=== PATIENT | male | born 1945 | race American Indian/Alaskan Native ===

== ENCOUNTER 2017-05-04 11:07 | Outpatient (CLI) | payer MEDICARE ==
--- NOTE | 2017-05-04 14:02 | XRay Report ---
KUB. History: Abdominal pain. Findings: The bowel gas pattern is unremarkable. Moderate stool is seen within the colon. There is rotoscoliosis of the visualized distal thoracic spine and the lumbar spine. No additional bony abnormalities are seen. Impression: No acute findings.
== END 2017-05-04 11:08 | disposition home or self-care (01) ==
LOC: SPVIMAG 11:07
DX: R10.9 Unspecified abdominal pain (principal); M41.86 Other forms of scoliosis, lumbar region; M41.84 Other forms of scoliosis, thoracic region; I11.0 Hypertensive heart disease with heart failure; I50.9 Heart failure, unspecified; I48.91 Unspecified atrial fibrillation
CPT/HCPCS: 74000

== ENCOUNTER 2017-06-12 17:08 | Observation (INO) | payer MEDICARE ==
--- NOTE | 2017-06-12 23:30 | XRay Report ---
FINAL REPORT PROCEDURE: XR CHEST ROUTINE 2V TECHNIQUE: PA and lateral chest radiographs were obtained. CPT 86431 HISTORY: worsening cough COMPARISON: No prior studies are available for comparison. FINDINGS: Heart: The heart size is slightly pronounced. Mediastinum/Vessels: Normal. Lungs/Pleural space: Normal. Bony thorax: No acute osseous abnormality. Other: IMPRESSION: No evidence of an acute infiltrate or effusion. Mild cardiomegaly..
[2017-06-12 23:49] LABS: Hematocrit 48.3 % (35.5-45.6); Hemoglobin 16.2 gm/dl (11.8-15.2); Mean Corpuscular HGB Conc 34 % (32-34); Mean Corpuscular Hemoglobin 30 pg (28-32); Mean Corpuscular Volume 91 fl (84-94); Platelet Count 199 K/mm3 (140-440); Red Blood Count 5.33 M/mm3 (3.65-5.03); Red Cell Distribution Width 13.6 % (13.2-15.2); White Blood Count 5.1 K/mm3 (4.5-11.0)
[2017-06-13] MEDS ORDERED: PHENERGAN/CODEINE 6.25-10 MG/5ML PO ONE (00:03)
[2017-06-13 00:04] LABS: Anion Gap 20 mmol/L; BUN/Creatinine Ratio 26.42; Blood Urea Nitrogen 37 mg/dL (9-20); Calcium 9.6 mg/dL (8.4-10.2); Carbon Dioxide 32 mmol/L (22-30); Chloride 91.9 mmol/L (98-107); Glucose 113 mg/dL (75-100); Potassium 3.6 mmol/L (3.6-5.0); Sodium 140 mmol/L (137-145)
[2017-06-13] MEDS ORDERED: HALFPRIN EC PO ONE (00:14)
[2017-06-13 02:49] LABS: Cholesterol 165 mg/dL (50-199); HDL Cholesterol 65 mg/dL (40-59); LDL Cholesterol,Direct 86 mg/dL (50-130); Triglycerides 70 mg/dL (2-149)
--- NOTE | 2017-06-13 02:51 | Emergency Department Report ---
ED General Adult HPI - General Chief complaint: Upper Respiratory Infection Stated complaint: SEVERE COUGH/HEADACHE Source: patient Mode of arrival: Ambulatory Limitations: No Limitations - History of Present Illness Initial comments: 71 year old male presents to ED with worsening dry cough x 3 days. patient has history of CHF, a fib, htn. patient denies SOB, chest pain, leg swelling, fevers. patient is stable, neurologically intact and in no acute distress. patient has had labs ordered in triage prior to being seen by mid level. -: Gradual, days(s) (3) Severity scale (0 -10): 0 Quality: other (dry cough) Consistency: constant Improves with: none Worsens with: none Associated Symptoms: cough, headaches. denies: chest pain, diaphoresis, fever/ chills, shortness of breath, syncope, weakness - Related Data Home Medications Medication Instructions Recorded Confirmed Last Taken Diltiazem Cd [Cardizem CD] 240 mg PO QDAY 03/29/16 08/19/16 08/18/16 240mg Gabapentin [Neurontin] 300 mg PO BID 03/29/16 08/19/16 08/18/16 300mg HYDROcodone/APAP 5-325 [[place] 1 each PO Q6HR PRN 03/29/16 08/19/16 08/18/16 5-325 mg TAB] 1 Losartan [Cozaar] 25 mg PO DAILY 03/29/16 08/19/16 08/18/16 25mg Previous Rx's Medication Instructions Recorded Last Taken Type Apixaban [Eliquis] 5 mg PO BID #1 mo 02/21/16 08/17/16 Rx 5mg Potassium Chloride 10 meq PO BID #60 capsule.er 04/02/16 08/18/16 Rx 10meq Metolazone [Zaroxolyn] 2.5 mg PO QDAY #4 tablet 08/19/16 Unknown Rx Torsemide [Demadex] 40 mg PO DAILY #60 tablet 08/19/16 Unknown Rx Allergies Allergy/AdvReac Type Severity Reaction Status Date / Time No Known Allergies Allergy Verified 11/24/13 11:25 ED Review of Systems ROS: Stated complaint: SEVERE COUGH/HEADACHE Other details as noted in HPI Constitutional: denies: chills, fever, weakness Eyes: denies: eye pain, eye discharge, vision change ENT: denies: ear pain, throat pain Respiratory: cough. denies: shortness of breath, wheezing Cardiovascular: denies: chest pain, palpitations Endocrine: no symptoms reported Gastrointestinal: denies: abdominal pain, nausea, diarrhea Genitourinary: denies: urgency, dysuria Musculoskeletal: denies: back pain, joint swelling, arthralgia Skin: denies: rash, lesions Neurological: denies: headache, weakness, paresthesias, confusion Psychiatric: denies: anxiety, depression Hematological/Lymphatic: denies: easy bleeding, easy bruising ED Past Medical Hx - Past Medical History Hx Hypertension: Yes Hx Congestive Heart Failure: Yes Hx Arthritis: Yes Additional medical history: A-Fib. Possible Sleep Apnea - Surgical History Past Surgical History?: No - Social History Smoking Status: Never Smoker - Medications Home Medications: Home Medications Medication Instructions Recorded Confirmed Last Taken Type Apixaban [Eliquis] 5 mg PO BID #1 mo 02/21/16 08/19/16 08/17/16 Rx 5mg Diltiazem Cd [Cardizem CD] 240 mg PO QDAY 03/29/16 08/19/16 08/18/16 History 240mg Gabapentin [Neurontin] 300 mg PO BID 03/29/16 08/19/16 08/18/16 History 300mg HYDROcodone/APAP 5-325 [[place] 1 each PO Q6HR PRN 03/29/16 08/19/16 08/18/16 History 5-325 mg TAB] 1 Losartan [Cozaar] 25 mg PO DAILY 03/29/16 08/19/16 08/18/16 History 25mg Potassium Chloride 10 meq PO BID #60 capsule.er 04/02/16 08/19/16 08/18/16 Rx 10meq Metolazone [Zaroxolyn] 2.5 mg PO QDAY #4 tablet 08/19/16 Unknown Rx Torsemide [Demadex] 40 mg PO DAILY #60 tablet 08/19/16 Unknown Rx ED Physical Exam - General Limitations: No Limitations General appearance: alert, in no apparent distress - Head Head exam: Present: atraumatic, normocephalic - Eye Eye exam: Present: normal appearance, EOMI - ENT ENT exam: Present: normal exam, normal orophraynx, mucous membranes moist - Neck Neck exam: Present: normal inspection, full ROM. Absent: tenderness - Respiratory Respiratory exam: Present: normal lung sounds bilaterally. Absent: respiratory distress, wheezes, rales, rhonchi, chest wall tenderness - Cardiovascular Cardiovascular Exam: Present: regular rate, normal rhythm. Absent: systolic murmur, diastolic murmur, rubs, gallop - GI/Abdominal GI/Abdominal exam: Present: soft, normal bowel sounds. Absent: distended, tenderness, guarding, rebound, rigid - Rectal Rectal exam: Present: deferred - Extremities Exam Extremities exam: Present: normal inspection, full ROM. Absent: tenderness - Back Exam Back exam: Present: normal inspection, full ROM. Absent: tenderness - Neurological Exam Neurological exam: Present: alert, oriented X3, normal gait - Psychiatric Psychiatric exam: Present: normal affect, normal mood - Skin Skin exam: Present: warm, dry, intact, normal color. Absent: rash ED Course Vital Signs 06/12/17 06/13/17 06/13/17 17:11 00:18 00:31 Temperature 98.4 F Pulse Rate 84 68 65 Respiratory 16 14 15 Rate Blood Pressure 141/68 125/63 O2 Sat by Pulse 98 97 98 Oximetry 06/13/17 06/13/17 06/13/17 00:45 01:00 01:15 Temperature Pulse Rate 66 77 68 Respiratory 16 19 12 Rate Blood Pressure 125/63 116/76 116/76 O2 Sat by Pulse 98 99 98 Oximetry 06/13/17 06/13/17 06/13/17 01:31 01:45 02:01 Temperature Pulse Rate 80 79 75 Respiratory 13 21 18 Rate Blood Pressure 116/76 116/76 118/76 O2 Sat by Pulse 97 97 96 Oximetry 06/13/17 06/13/17 06/13/17 02:15 02:31 02:45 Temperature Pulse Rate 74 70 80 Respiratory 20 14 19 Rate Blood Pressure 118/76 118/76 118/76 O2 Sat by Pulse 97 96 94 Oximetry 06/13/17 06/13/17 06/13/17 03:00 03:15 03:25 Temperature Pulse Rate 71 75 Respiratory 17 16 18 Rate Blood Pressure 121/68 121/68 O2 Sat by Pulse 96 96 98 Oximetry 06/13/17 06/13/17 06/13/17 03:31 03:45 04:01 Temperature Pulse Rate 67 82 79 Respiratory 17 24 24 Rate Blood Pressure 121/68 121/68 104/59 O2 Sat by Pulse 99 97 94 Oximetry 06/13/17 04:15 Temperature Pulse Rate 76 Respiratory 18 Rate Blood Pressure 121/68 O2 Sat by Pulse 96 Oximetry ED Medical Decision Making - Lab Data Result diagrams: 06/12/17 23:20 06/12/17 23:20 Labs 06/12/17 06/12/17 06/12/17 23:20 23:20 23:20 WBC 5.1 RBC 5.33 H Hgb 16.2 H Hct 48.3 H MCV 91 MCH 30 MCHC 34 RDW 13.6 Plt Count 199 Seg Neutrophils % Knocker Off VBG pH 7.378 Sodium 140 Potassium 3.6 Chloride 91.9 L Carbon Dioxide 32 H Anion Gap 20 BUN 37 H Creatinine 1.4 Estimated GFR > 60 BUN/Creatinine Ratio 26.42 Glucose 113 H Calcium 9.6 Total Creatine Kinase Troponin T 0.035 H NT-Pro-B Natriuret Pep Triglycerides 70 Cholesterol 165 LDL Cholesterol Direct 86 HDL Cholesterol 65 H Cholesterol/HDL Ratio 2.53 06/13/17 06/13/17 02:19 02:19 WBC RBC Hgb Hct MCV MCH MCHC RDW Plt Count Seg Neutrophils % VBG pH Sodium Potassium Chloride Carbon Dioxide Anion Gap BUN Creatinine Estimated GFR BUN/Creatinine Ratio Glucose Calcium Total Creatine Kinase 195 H Troponin T NT-Pro-B Natriuret Pep 570.9 Triglycerides Cholesterol LDL Cholesterol Direct HDL Cholesterol Cholesterol/HDL Ratio - EKG Data EKG shows normal: sinus rhythm Rate: normal - EKG Data When compared to previous EKG there are: no significant change - Radiology Data Radiology results: report reviewed XR chest No evidence for acute infiltrates or effusion. Mild cardiomegaly. - Medical Decision Making 71 year old male (hx of HTN, A-fib, CHF) presents to ED with dry cough x3 days. patient has had lab work ordered prior to being seen by mid level and has elevated troponin. patient denies fever, syncope, chest pain, SOB, leg swelling , N/V, abd pain. patient will be admitted to telemetry for observation and repeat cardiac enzymes due to elevated troponin during ED visit. patient's last stress test was July 2016 and showed EF of 65%. patient had heart cath March 2016 for tricuspid regurg and right ventricular pressure overload which showed moderate pulmonary htn and mildly decreased cardiac output. Patient is stable, neurologically intact and in no acute distress. patient has been admitted to telemetry unit and I have spoken with Dr. kramer at 2am for admission. Critical care attestation.: If time is entered above; I have spent that time in minutes in the direct care of this critically ill patient, excluding procedure time. ED Disposition Clinical Impression: Elevated troponin level Disposition: OP ADMIT IP TO THIS HOSP Is pt being admited?: Yes Does the pt Need Aspirin: Yes (patient has recieved 81mg aspirin during ED visit.) Condition: Stable
[2017-06-13] MEDS ORDERED: DULCOLAX PR PRN (03:49)
[2017-06-13] MEDS ORDERED: MILK OF MAGNESIA PO PRN (03:49)
[2017-06-13] MEDS ORDERED: NORCO 5/325 PO PRN (03:49)
[2017-06-13] MEDS ORDERED: TYLENOL PO PRN (03:49)
[2017-06-13] MEDS ORDERED: ZOFRAN IV PRN (03:49)
[2017-06-13] MEDS ORDERED: PROVENTIL IH PRN (03:49)
[2017-06-13] MEDS ORDERED: HYDROMET PO ONE (03:56)
[2017-06-13] MEDS ORDERED: TESSALON PERLES PO ONE (03:57)
[2017-06-13] MEDS ORDERED: D5/0.45NS 1,000 ML IV SCH (04:00)
--- NOTE | 2017-06-13 04:02 | History and Physical Report ---
History of Present Illness Date of examination: 06/13/17 Date of admission: 06/13/2017 Chief complaint: Cough dry cough History of present illness: Patient is a 71-year-old male with a history of non valvular atrial fibrillation , history of diastolic heart failure, hypertension, osteoarthritis. Patient presents this admission with a nonproductive cough lasting for 2-3 days associated with headache and postnasal drip symptoms stuffy runny nose. 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 Patient denies any shortness of breath denies chest pain. Denies fever rules denies nausea or vomiting. Patient recently as one year ago had extensive cardiac workup which showed ejection fraction of 65% atrial fibrillation. At that time had normal coronaries. Patient this admission has atrial fibrillation with normal ventricular response. Heart rate 75. Patient was noted to have elevated troponin of only 35. Will refer patient to follow elevated troponin. Past History Past Medical History: atrial fib, heart failure, hypertension. denies: arrhythmia, anemia, arthritis, CAD, cancer, COPD, diabetes, dialysis, DVT, ESRD , GERD, hepatitis, HIV/AIDS, hyperthyroidism, hyperlipidemia, hypothyroidism, liver disease, PVD, pulmonary embolism, renal failure, seizures Past Surgical History: No surgical history Social history: lives with family. denies: smoking, alcohol abuse, prescription drug abuse Family history: hypertension Medications and Allergies Allergies Allergy/AdvReac Type Severity Reaction Status Date / Time No Known Allergies Allergy Verified 11/24/13 11:25 Home Medications Medication Instructions Recorded Confirmed Last Taken Type Apixaban [Eliquis] 5 mg PO BID #1 mo 02/21/16 08/19/16 08/17/16 Rx 5mg Diltiazem Cd [Cardizem CD] 240 mg PO QDAY 03/29/16 08/19/16 08/18/16 History 240mg Gabapentin [Neurontin] 300 mg PO BID 03/29/16 08/19/16 08/18/16 History 300mg HYDROcodone/APAP 5-325 [[place] 1 each PO Q6HR PRN 03/29/16 08/19/16 08/18/16 History 5-325 mg TAB] 1 Losartan [Cozaar] 25 mg PO DAILY 03/29/16 08/19/16 08/18/16 History 25mg Potassium Chloride 10 meq PO BID #60 capsule.er 04/02/16 08/19/1616 Rx 10meq Metolazone [Zaroxolyn] 2.5 mg PO QDAY #4 tablet 08/19/16 Unknown Rx Torsemide [Demadex] 40 mg PO DAILY #60 tablet 08/19/16 Unknown Rx Active Meds: Active Medications Acetaminophen (Tylenol) 650 mg PO Q4H PRN PRN Reason: Pain MILD(1-3)/Fever >100.5/FREEDMNA Acetaminophen/Hydrocodone Bitart ([place] 5/325) 2 each PO Q6H PRN PRN Reason: Pain, Moderate (4-6) Albuterol (Proventil) 2.5 mg IH Q3HRT PRN PRN Reason: Shortness Of Breath Apixaban (Eliquis) 5 mg PO BID SUGAR PRN Reason: Protocol Bisacodyl (Dulcolax) 10 mg SD QDAY PRN PRN Reason: Constipation unrelieved by [facility] Diltiazem HCl (Cardizem Cd) 240 mg PO QDAY [facility] Enoxaparin Sodium (Lovenox) 40 mg SUB-Q QDAY [facility] Gabapentin (Neurontin) 300 mg PO BID [facility] Dextrose/Sodium Chloride (D5/0.45ns) 1,000 mls @ 42 mls/hr IV DIRECT SUGAR Stop: 06/14/17 03:49 Losartan Potassium (Cozaar) 25 mg PO DAILY [facility] Magnesium Hydroxide (Milk Of Magnesia) 30 ml PO Q4H PRN PRN Reason: Constipation Metolazone (Zaroxolyn) 2.5 mg PO QDAY [facility] Miscellaneous Medication (Potassium Chloride [Potassium Chloride]) 10 meq PO BID [facility] Miscellaneous Medication (Torsemide [Demadex]) 40 mg PO DAILY [facility] Ondansetron HCl (Zofran) 4 mg IV Q8H PRN PRN Reason: N/V unrelieved by Reglan Review of Systems Constitutional: chronic pain, no weight loss, no weight gain, no fever, no chills, no sweats, no night sweats, no anorexia, no fatigue, no weakness, no malaise, no lethargy, no chronic headaches, no poor appetite, no daytime sleepiness Ears, nose, mouth and throat: decreased hearing, nasal congestion, nasal discharge, sinus pressure, sore throat, post-nasal drip, no ear pain, no ear discharge, no tinnitis, no nose pain, no sinus pain, no epistaxis, no bleeding gums, no dental pain, no mouth pain, no dysphagia, no hoarseness, no swelling in mouth, no swelling in throat, no odynophagia, no voice changes, no headache, no vertigo, no pain front of neck, no neck fullness/pressure, no neck lump Cardiovascular: no chest pain, no orthopnea, no palpitations, no rapid/ irregular heart beat, no syncope, no dyspnea on exertion, no paroxysmal nocturnal dyspnea, no claudication, no phlebitis, no high blood pressure, no decreased exercise tolerance, no other Respiratory: cough, snoring, no cough with sputum, no excessive sputum, no hemoptysis, no shortness of breath, no dyspnea on exertion, no congestion, no wheezing, no pleurisy, no pain, no pain on inspiration, no sleep apnea, no respiratory infections, no home oxygen Gastrointestinal: no abdominal pain, no nausea, no vomiting, no melena, no hematochezia, no loss of appetite, no heartburn, no excessive gas, no jaundice, no early satiety, no lactose intolerance Genitourinary Male: no hematuria, no flank pain, no urinary frequency, no urinary hesitancy, no nocturia, no incontinence, no genital sores, no impotence , no decreased libido, no testicular pain, no testicular lump, no difficulties fathering child, no polyuria Rectal: no incontinence, no bleeding Musculoskeletal: no shooting arm pain, no arm numbness/tingling, no low back pain, no shooting leg pain, no leg numbness/tingling, no redness of joints, no morning stiffness, no muscle cramps, no myalgias, no loss of height Integumentary: no wounds, no jaundice, no depigmentation, no color changes, no hirsutism, no foot/leg ulcers, no other Neurological: headaches, no transient paralysis, no paralysis, no parathesias, no syncope, no ataxia, no lack of coordination, no migraines, no aphasia, no confusion, no memory loss, no changes in smell/taste, no sensory deficit, no double vision, no burning pain, no paralysis Psychiatric: no anxiety, no change in sleep habits, no sleep disturbances, no hypersomnia, no change in appetite, no suicidal ideation, no disorientation, no hallucinations, no paranoia, no hopelessness, no difficulties concentrating, no confusion, no irritability, no sadness/tearfullness, no other Endocrine: no cold intolerance, no heat intolerance, no excessive thirst, no polydipsia, no weight change, no increase in ring/shoe/hat size, no recent glucocorticoid use Hematologic/Lymphatic: no lymphadenopathy Allergic/Immunologic: no urticaria, no allergic rhinitis, no persistent infections, no anaphylaxis, no gluten intolerance, no seasonal allergies Exam - Constitutional Vitals: Temp Pulse Resp BP Pulse Ox 98.4 F 75 18 121/68 98 06/12/17 17:11 06/13/17 03:15 06/13/17 03:25 06/13/17 03:15 06/13/17 03:25 General appearance: Present: no acute distress, well-nourished - EENT Eyes: Present: PERRL, EOM intact. Absent: irregular pupil, scleral icterus, conjunctival injection, exopthalmos, miosis, mydriasis ENT: hearing intact, clear oral mucosa, dentition normal, no hearing decreased, no oropharyngeal erythema, no poor dentition, no thrush, no ulcerations, no edentulous - Neck Neck: Present: supple, normal ROM. Absent: rigidity, enlarged thyroid, masses or JVD, cervical LAD, carotid bruits - Respiratory Respiratory effort: normal Respiratory: bilateral: CTA - Cardiovascular Rhythm: regularly irregular Heart Sounds: Present: S1 & S2. Absent: rub, click - Extremities Extremities: pulses symmetrical, No edema Peripheral Pulses: within normal limits - Abdominal General gastrointestinal: Present: soft, non-tender, non-distended, normal bowel sounds - Integumentary Integumentary: Present: clear, warm, dry - Musculoskeletal Musculoskeletal: strength equal bilaterally, generalized weakness - Psychiatric Psychiatric: appropriate mood/affect, intact judgment & insight - Neurologic Neurologic: CNII-XII intact, moves all extremities Results - Labs CBC & Chem 7: 06/12/17 23:20 06/12/17 23:20 Labs: Laboratory Last Values WBC 5.1 K/mm3 (4.5-11.0) 06/12/17 23:20 RBC 5.33 M/mm3 (3.65-5.03) H 06/12/17 23:20 Hgb 16.2 gm/dl (11.8-15.2) H 06/12/17 23:20 Hct 48.3 % (35.5-45.6) H 06/12/17 23:20 MCV 91 fl (84-94) 06/12/17 23:20 MCH 30 pg (28-32) 06/12/17 23:20 MCHC 34 % (32-34) 06/12/17 23:20 RDW 13.6 % (13.2-15.2) 06/12/17 23:20 Plt Count 199 K/mm3 (140-440) 06/12/17 23:20 Seg Neutrophils % Rapier Insertion Loom Fixer 06/12/17 23:20 VBG pH 7.378 (7.320-7.420) 06/12/17 23:20 Sodium 140 mmol/L (137-145) 06/12/17 23:20 Potassium 3.6 mmol/L (3.6-5.0) 06/12/17 23:20 Chloride 91.9 mmol/L (98-107) L 06/12/17 23:20 Carbon Dioxide 32 mmol/L (22-30) H 06/12/17 23:20 Anion Gap 20 mmol/L 06/12/17 23:20 BUN 37 mg/dL (9-20) H 06/12/17 23:20 Creatinine 1.4 mg/dL (0.8-1.5) 06/12/17 23:20 Estimated GFR > 60 ml/min 06/12/17 23:20 BUN/Creatinine Ratio 26.42 % 06/12/17 23:20 Glucose 113 mg/dL (75-100) H 06/12/17 23:20 Calcium 9.6 mg/dL (8.4-10.2) 06/12/17 23:20 Total Creatine Kinase 195 units/L (55-170) H 06/13/17 02:19 Troponin T 0.035 ng/mL (0.00-0.029) H 06/12/17 23:20 NT-Pro-B Natriuret Pep 570.9 pg/mL (0-900) 06/13/17 02:19 Triglycerides 70 mg/dL (2-149) 06/12/17 23:20 Cholesterol 165 mg/dL (50-199) 06/12/17 23:20 LDL Cholesterol Direct 86 mg/dL (50-130) 06/12/17 23:20 HDL Cholesterol 65 mg/dL (40-59) H 06/12/17 23:20 Cholesterol/HDL Ratio 2.53 % 06/12/17 23:20 - Imaging and Cardiology EKG: image reviewed Chest x-ray: image reviewed Assessment and Plan Assessment and plan: Pt is on elaquis Advance Directives: Yes VTE prophylaxis?: Chemical Plan of care discussed with patient/family: Yes - Patient Problems (1) Cough Current Visit: Yes Status: Acute Plan to address problem: secondary to post nasal drip Will treat with tessalon pearls and hydro met Pt does not need to be in hospital for this and if f/u enzymes come back equal or lower than previous will discharge Add amoxicilin (2) Elevated troponin level Current Visit: Yes Status: Acute Plan to address problem: Pt withonly a mild elevated troponin with dehydration and recent extensive negative cardiac work up. Very low risk of significant CAD. F/U tropinin if lower than or equal to previous will d/c. cont to treat a.fib with elaquis (3) Post-nasal drip Current Visit: Yes Status: Acute Plan to address problem: see tratment of cough (4) Atrial fibrillation Current Visit: Yes Status: Acute Qualifiers: Atrial fibrillation type: A Plan to address problem: chronic at present asymptomatic cont elaquis rate controlled
[2017-06-13] MEDS ORDERED: ZITHROMAX PO ONE (04:13)
[2017-06-13 04:15] LABS: INR 1.32 (0.87-1.13)
[2017-06-13 04:16] LABS: Partial Thromboplastin Time 36.4 Sec. (24.2-36.6)
[2017-06-13 05:07] LABS: Basophils % (Manual) 0 % (0.0-1.8); Blastocytes % (Manual) 0 %
[2017-06-13 05:09] LABS: Anisocytosis Few; Burr Cells Few; Diff Status Complete
[2017-06-13 06:08] VITALS: BP 102/74
[2017-06-13] MEDS ORDERED: COZAAR PO SCH ×2 (10:00)
[2017-06-13] MEDS ORDERED: NON-FORMULARY (Torsemide [Demadex] 40 MG) PO SCH (10:00)
[2017-06-13] MEDS ORDERED: CARDIZEM CD PO SCH ×2 (10:00)
[2017-06-13] MEDS ORDERED: NON-FORMULARY (Potassium Chloride [Potassium Chloride] 10 MEQ) PO SCH (10:00)
[2017-06-13] MEDS ORDERED: K-DUR PO SCH (10:00)
[2017-06-13] MEDS ORDERED: ZAROXOLYN PO SCH (10:00)
[2017-06-13] MEDS ORDERED: LOVENOX SUB-Q SCH (10:00)
[2017-06-13] MEDS ORDERED: DEMADEX PO SCH (10:00)
[2017-06-13] MEDS ORDERED: NEURONTIN PO SCH (10:00)
[2017-06-13] MEDS ORDERED: ELIQUIS PO SCH (10:00)
--- NOTE | 2017-06-13 10:39 | Discharge Summary ---
Providers - Providers Date of Admission: 06/13/17 03:49 Attending physician: ERICA GUERRA MD Primary care physician: OLIVER HERRERA Hospitalization Reason for admission: cough, post nasal drip Condition: Stable Hospital course: Patient is a 71-year-old male with a history of non valvular atrial fibrillation , history of diastolic heart failure, hypertension, osteoarthritis. Patient presents this admission with a nonproductive cough lasting for 2-3 days associated with headache and postnasal drip symptoms stuffy runny nose. 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 Patient denies any shortness of breath denies chest pain. Denies fever rules denies nausea or vomiting. Patient recently as one year ago had extensive cardiac workup which showed ejection fraction of 65% atrial fibrillation. At that time had normal coronaries. Patient this admission has atrial fibrillation with normal ventricular response. Heart rate 75. Patient was noted to have elevated troponin of only 35. Will refer patient to follow elevated troponin. patient was admitted and symptomatically treated for cough, URTI. Patient showed marked improvement by the time i saw him. Patient's repeated troponin level come back to normal level. Patient asked to go home. patient was hemodynamically stable and was discharged home with appropriate discharge medications. Disposition: DC-01 TO HOME OR SELFCARE Time spent for discharge: 31 minutes - Discharge Diagnoses (1) Atrial fibrillation Status: Acute Qualifiers: Atrial fibrillation type: A (2) Cough Status: Acute (3) Elevated troponin level Status: Acute (4) Post-nasal drip Status: Acute Core Measure Documentation - Palliative Care Palliative Care/ Comfort Measures: Not Applicable - Core Measures Any of the following diagnoses?: none Exam - Constitutional Vitals: Temp Pulse Resp BP Pulse Ox 98.4 F 75 20 102/74 100 06/13/17 06:06 06/13/17 08:28 06/13/17 06:06 06/13/17 06:06 06/13/17 06:06 General appearance: Present: no acute distress - EENT Eyes: Present: EOM intact ENT: clear oral mucosa - Neck Neck: Present: supple, normal ROM - Respiratory Respiratory effort: normal - Cardiovascular Rhythm: regular Heart Sounds: Present: S1 & S2 - Extremities Extremities: no ischemia, No edema, Full ROM - Abdominal General gastrointestinal: Present: soft, non-tender, non-distended - Integumentary Integumentary: Present: clear, warm, dry - Musculoskeletal Musculoskeletal: strength equal bilaterally - Psychiatric Psychiatric: appropriate mood/affect - Neurologic Neurologic: CNII-XII intact, moves all extremities Plan Activity: no restrictions Diet: low cholesterol, low salt Follow up with: OLIVER HERRERA MD, PHD [Primary Care Provider] - 3-5 Days Forms: Discharge Signature Page Prescriptions: Amoxicillin 500 mg PO TID #21 capsule guaiFENesin DM [Robitussin Dm] 10 ml PO Q6HR #1 bottle HYDROcodone/APAP 5-325 [[place] 5-325 mg TAB] 1 each PO Q6HR PRN #10 tablet PRN Reason: Pain
[2017-06-13] MEDS ORDERED: Fluarix Quad 2017-2018(36 MOS+ IM ONE (12:00)
== END 2017-06-13 16:41 | disposition home or self-care (01) ==
LOC: EDBD 17:08 → ED 17:08 → 4A 06-13 03:49 → INTOOBSV 06-13 03:49
PROVIDERS: ADMIT Internal Medicine; ATTEND Internal Medicine
DX: R09.82 Postnasal drip (principal); R05 Cough; I48.91 Unspecified atrial fibrillation; R79.89 Other specified abnormal findings of blood chemistry; I11.0 Hypertensive heart disease with heart failure; I50.32 Chronic diastolic (congestive) heart failure; M19.90 Unspecified osteoarthritis, unspecified site; Z82.49 Family history of ischemic heart disease and other diseases of the circulatory system; Z23 Encounter for immunization
CPT/HCPCS: 36415; 71020; 80048; 80061; 82550; 82805; 83880; 84484; 85007; 85025; 85610; 85730; 87040; 90471; 90686; 93005; 93010; 96360; 96361; 99285; G0008; G0378

== ENCOUNTER 2017-09-15 07:43 | Day surgery (SDC) | payer MEDICARE ==
[2017-09-15] MEDS ORDERED: ECOTRIN PO ONE (08:06)
[2017-09-15 08:23] LABS: Hematocrit 46.2 % (35.5-45.6); Hemoglobin 15.8 gm/dl (11.8-15.2); Mean Corpuscular HGB Conc 34 % (32-34); Mean Corpuscular Hemoglobin 31 pg (28-32); Mean Corpuscular Volume 90 fl (84-94); Platelet Count 204 K/mm3 (140-440); Red Blood Count 5.12 M/mm3 (3.65-5.03); Red Cell Distribution Width 14.3 % (13.2-15.2)
[2017-09-15 08:34] LABS: INR 1.31 (0.87-1.13)
[2017-09-15 08:35] LABS: Calcium 9.1 mg/dL (8.4-10.2)
[2017-09-15] MEDS ORDERED: K-DUR PO ONE ×2 (08:51→08:54)
[2017-09-15] MEDS ORDERED: NACL 0.9% 500 ML 500 ML IV SCH (09:00)
[2017-09-15 09:03] LABS: Anisocytosis Few; Band Neutrophils # (Manual) 0.1 K/mm3; Basophils % (Manual) 0 % (0.0-1.8); Burr Cells Rare; Giant Platelets Few; Large Platelets Few; Total Cells Counted 100
[2017-09-15] MEDS ORDERED: HEPARIN/NS 5000 UNIT/500ML(CATH LAB) 1,000 ML IR ONE (09:26)
[2017-09-15] MEDS ORDERED: VERSED ONE (09:26)
[2017-09-15] MEDS ORDERED: SUBLIMAZE ONE (09:26)
[2017-09-15] MEDS: XYLOCAINE 2% INFILTRATI ONE ×2 (09:45→09:59)
--- NOTE | 2017-09-15 10:31 | Short Stay Summary ---
Short Stay Documentation Date of service: 09/15/17 - History H&P: obtained from office - Allergies and Medications Current Medications: Allergies codeine Adverse Reaction (Mild, Verified 09/15/17 08:22) Unknown pt has intolerance to medication acetaminophen [From Tylenol] Adverse Reaction (Verified 09/15/17 08:23) Unknown pt has intolerance to medication Home Medications Medication Instructions Recorded Confirmed Last Taken Type Apixaban [Eliquis] 5 mg PO BID #1 mo 02/21/16 09/15/17 09/14/17 Rx Diltiazem Cd [Cardizem CD] 240 mg PO QDAY 03/29/16 09/15/17 09/14/17 History Potassium Chloride 10 meq PO BID #60 capsule.er 04/02/16 09/15/17 09/14/17 Rx Aspirin [Aspirin TAB] 325 mg PO QDAY 09/15/17 09/15/17 09/14/17 History Loratadine [Claritin] 10 mg PO PRN PRN 09/15/17 09/15/17 09/14/17 History Metolazone [Zaroxolyn] 5 mg PO 1XW 09/15/17 09/15/17 09/13/17 History Torsemide [Demadex] 20 mg PO DAILY 09/15/17 09/15/17 09/14/17 History traMADol [Ultram] 50 mg PO Q6HR PRN 09/15/17 09/15/17 09/14/17 History Active Medications Sodium Chloride (Nacl 0.9% 500 Ml) 500 mls @ 50 mls/hr IV DIRECT SUGAR Stop: 09/15/17 18:59 Last Admin: 09/15/17 08:25 Dose: 50 mls/hr - Physical exam General appearance: no acute distress Integumentary: no rash HEENT: Atraumatic Lungs: Clear to auscultation Breasts: deferred Heart: Other Gastrointestinal: normal Male Genitourinary: deferred Female Genitourinary: deferred Rectal Exam: deferred Extremities: no ischemia Neurological: Normal gait - Brief post op/procedure progress note Date of procedure: 09/15/17 Pre-op diagnosis: PH, SOB Post-op diagnosis: same Procedure: RHC Anesthesia: MAC Findings: See report Surgeon: ROBERTO GONZALEZ Estimated blood loss: none Pathology: none Condition: stable - Hospital course Hospital course: Uneventful - Disposition Condition at discharge: Good Disposition: DC-01 TO HOME OR SELFCARE Short Stay Discharge Plan Activity: advance as tolerated, no driving until cleared by PCP (for 2 days) Weight Bearing Status: Non-Weight Bearing (for 2 days) Diet: low fat, low cholesterol, low salt Follow up with: OLIVER HERRERA MD, PHD [Primary Care Provider] - 7 Days
--- NOTE | 2017-09-15 12:18 | Cardiac Catherization Report ---
INDICATION: Pulmonary hypertension, shortness of breath. PROCEDURES PERFORMED: Right heart catheterization with hemodynamic measurement and oxygen saturation run. DESCRIPTION OF PROCEDURE: After obtaining written consent, the patient was draped using sterile technique. A 2% lidocaine was injected into the right groin. Using a micropuncture technique, a 6-Ethiopian vascular sheath was inserted into the right femoral vein. A 6-[place]ian [place]Josias catheter was used to perform right-sided hemodynamics and oxygen saturation run. No complications occurred during the procedure. Hemostasis was achieved at the end of the procedure using manual pressure. SPECIMEN REMOVED: None. ESTIMATED BLOOD LOSS: Minimal. FINDINGS: 1. The mean pulmonary capillary wedge pressure was 18 mmHg. 2. The mean pulmonary artery pressure was 33 mmHg with a systolic pressure of 51 mmHg, and end-diastolic pressure of 20 mmHg. 3. The right ventricular systolic pressure is 51 mmHg with right ventricular end-diastolic pressure of 12 mmHg. 4. The mean right arterial pressure is 16 mmHg. 5. The Burke cardiac output is 2.55 L per minute with a cardiac index of 1.47 L per minute per m sq. 6. The transpulmonary gradient is 15 mmHg with a pulmonary vascular resistance of 5.9 Archibald units. 7. Compared to the study done on 08/19/2016 there is significant improvement in the filling pressures; however, there is still evidence of pulmonary arterial hypertension and depressed cardiac output. IMPRESSION: 1. Evidence of [id number] pulmonary arterial hypertension with a depressed cardiac output, cardiac index measured at 1.47 liters per minute. 2. Elevated pulmonary vascular resistance of 5.9 Archibald units with a transpulmonary gradient of 15 mmHg and the pulmonary capillary wedge pressure of 18 mmHg. 3. Significant improvement in the filling pressures compared to 08/19/2016. RECOMMENDATIONS: The patient will be recommended for the initiation of pulmonary vasodilator therapy. JOB# [id number] JABIER/JASWINDER
[2017-09-15 14:37] VITALS: BP 110/70
== END 2017-09-15 14:20 | disposition home or self-care (01) ==
LOC: CATHLABREC 07:43
PROVIDERS: ATTEND Internal Medicine
PROC: 4A023N6 Measurement of Cardiac Sampling and Pressure, Right Heart, Percutaneous Approach (ICD-10-PCS; principal; 2017-09-15)
PROC: 4A023N6 Measurement of Cardiac Sampling and Pressure, Right Heart, Percutaneous Approach (ICD-10-PCS; 2017-09-15)
PROC: 4A023N6 Measurement of Cardiac Sampling and Pressure, Right Heart, Percutaneous Approach (ICD-10-PCS; 2017-09-15)
DX: I27.20 Pulmonary hypertension, unspecified (principal); I34.0 Nonrheumatic mitral (valve) insufficiency; I48.1 Persistent atrial fibrillation; I36.1 Nonrheumatic tricuspid (valve) insufficiency; G47.33 Obstructive sleep apnea (adult) (pediatric); Z79.01 Long term (current) use of anticoagulants; Z79.82 Long term (current) use of aspirin; Z79.899 Other long term (current) drug therapy; Z88.5 Allergy status to narcotic agent
CPT/HCPCS: 36415; 80048; 85007; 85025; 85610; 85730; 93005; 93010; 93451; 99152; C1769; C1894; J1644; J2250; J7040; J3010

== ENCOUNTER 2019-01-06 10:34 | Emergency (ER) | payer MEDICARE ==
[2019-01-06] MEDS ORDERED: NACL 0.9% 1000 ML 1,000 ML IV ONE (10:41)
[2019-01-06 11:09] LABS: Basophils % (Auto) 0.5 % (0.0-1.8); Eosinophils # (Auto) 0.1 K/mm3 (0.0-0.4); Hematocrit 41.3 % (35.5-45.6); Hemoglobin 14.4 gm/dl (11.8-15.2); Lymphocytes # (Auto) 2.2 K/mm3 (1.2-5.4); Lymphocytes % (Auto) 47.3 % (13.4-35.0); Mean Corpuscular HGB Conc 35 % (32-34); Mean Corpuscular Volume 93 fl (84-94); Monocytes # (Auto) 0.6 K/mm3 (0.0-0.8); Monocytes % (Auto) 12.3 % (0.0-7.3); Platelet Count 185 K/mm3 (140-440); Red Blood Count 4.46 M/mm3 (3.65-5.03); Red Cell Distribution Width 15.5 % (13.2-15.2)
[2019-01-06 11:32] LABS: Alanine Aminotransferase 21 units/L (7-56); Albumin 3.9 g/dL (3.9-5); BUN/Creatinine Ratio 17; Blood Urea Nitrogen 22 mg/dL (9-20); Calcium 9.3 mg/dL (8.4-10.2); Hemolysis Index 19
[2019-01-06] MEDS ORDERED: PEPCID IV ONE (11:40)
[2019-01-06 12:35] LABS: Bilirubin,Urine NEG (Negative); Blood,Urine NEG (Negative); Color,Urine Yellow (Yellow); WBC,Urine < 1.0 /HPF (0.0-6.0)
--- NOTE | 2019-01-06 14:05 | Cat Scan Report ---
PROCEDURE: CT ABDOMEN PELVIS W CON TECHNIQUE: CT of the abdomen and pelvis was performed. IV contrast was administered. Axial images and coronal and sagittal reformatted images were obtained. Axial delayed imaging also performed. HISTORY: abd pain COMPARISON: None FINDINGS: There is marked cardiomegaly. There is retrograde flow of contrast material into IVC and hepatic vein s. This is consistent with right heart failure. There is a tiny cyst in the left hepatic lobe. Other tiny low-density liver lesions are very small an d too small to characterize. The spleen, pancreas, adrenals and kidneys demonstrate no significant abnormality. There is no abdominal aortic aneurysm. There is no evidence for intestinal obstruction. The appendix is normal. There is no abnormal fluid collection seen. There is no free intraperitoneal air. There is diffuse bladder wall thickening. There are lumbar degenerative changes which are most notable at L4-5. There are also moderate degener ative findings involving the hips. IMPRESSION: Marked cardiomegaly with retrograde contrast flow into IVC/hepatic veins which suggests right heart f ailure. Tiny low-density liver lesions are too small to characterize. There significance is doubtful. Diffuse bladder wall thickening. Correlate for possible cystitis. There are degenerative findings in the lumbar spine and involving the hips This document is electronically signed by Dasha Avelar MD., January 06 2019 02:03:29 PM ET
--- NOTE | 2019-01-06 14:44 | Emergency Department Report ---
ED Abdominal Pain HPI - General Chief Complaint: Abdominal Pain Stated Complaint: ABD PAIN Time Seen by Provider: 01/06/19 11:31 Source: patient Mode of arrival: Ambulatory Limitations: No Limitations - History of Present Illness Initial Comments: Patient is a 73-year-old gentleman who is presenting with 2-3 days of epigastric discomfort. Patient recent travel back to [facility] from [place]. Patient has a history of congestive heart failure and hypertension with A. fib. Patient is denying any chest pain shortness of breath fevers chil ls nausea vomiting or diarrhea. Patient states pain is midepigastrium is no radiation. Pain is 6 out of 10 and is a aching nagging pain. Improves With: nothing Worsens With: nothing - Related Data Home Medications Medication Instructions Recorded Confirmed Last Taken dilTIAZem CD [Cardizem CD] 240 mg PO QDAY 03/29/16 09/15/17 09/14/17 Aspirin [Aspirin TAB] 325 mg PO QDAY 09/15/17 09/15/17 09/14/17 Loratadine [Claritin] 10 mg PO PRN PRN 09/15/17 09/15/17 09/14/17 Torsemide [Demadex] 20 mg PO DAILY 09/15/17 09/15/17 09/14/17 metOLazone [Zaroxolyn] 5 mg PO 1XW 09/15/17 09/15/17 09/13/17 traMADol [Ultram 50 MG tab] 50 mg PO Q6HR PRN 09/15/17 09/15/17 09/14/17 Previous Rx's Medication Instructions Recorded Last Taken Type Apixaban [Eliquis] 5 mg PO BID #1 mo 02/21/16 09/14/17 Rx Potassium Chloride 10 meq PO BID #60 capsule.er 04/02/16 09/14/17 Rx Famotidine [Pepcid] 40 mg PO QHS #10 tablet 01/06/19 Unknown Rx Allergies Allergy/AdvReac Type Severity Reaction Status Date / Time No Known Allergies Allergy Unverified 01/06/19 10:36 ED Review of Systems ROS: Stated complaint: ABD PAIN Other details as noted in HPI Comment: All other systems reviewed and negative ED Past Medical Hx - Past Medical History Previous Medical History?: Yes Hx Hypertension: Yes Hx Congestive Heart Failure: Yes Hx Arthritis: Yes Hx HIV: No Additional medical history: A-Fib. Possible Sleep Apnea - Surgical History Past Surgical History?: No - Social History Smoking Status: Never Smoker Substance Use Type: None - Medications Home Medications: Home Medications Medication Instructions Recorded Confirmed Last Taken Type Apixaban [Eliquis] 5 mg PO BID #1 mo 02/21/16 09/15/17 09/14/17 Rx dilTIAZem CD [Cardizem CD] 240 mg PO QDAY 03/29/16 09/15/17 09/14/17 History Potassium Chloride 10 meq PO BID #60 capsule.er 04/02/16 09/15/17 09/14/17 Rx Aspirin [Aspirin TAB] 325 mg PO QDAY 09/15/17 09/15/17 09/14/17 History Loratadine [Claritin] 10 mg PO PRN PRN 09/15/17 09/15/17 09/14/17 History Torsemide [Demadex] 20 mg PO DAILY 09/15/17 09/15/17 09/14/17 History metOLazone [Zaroxolyn] 5 mg PO 1XW 09/15/17 09/15/17 09/13/17 History traMADol [Ultram 50 MG tab] 50 mg PO Q6HR PRN 09/15/17 09/15/17 09/14/17 History Famotidine [Pepcid] 40 mg PO QHS #10 tablet 01/06/19 Unknown Rx ED Physical Exam - General Limitations: No Limitations General appearance: alert, in no apparent distress - Head Head exam: Present: atraumatic, normocephalic - Eye Eye exam: Present: normal appearance - ENT ENT exam: Present: mucous membranes moist - Neck Neck exam: Present: normal inspection - Respiratory Respiratory exam: Present: normal lung sounds bilaterally. Absent: respiratory distress, wheezes, rales, rhonchi - Cardiovascular Cardiovascular Exam: Present: regular rate, normal rhythm. Absent: systolic murmur, diastolic murmur, rubs, gallop - GI/Abdominal GI/Abdominal exam: Present: soft, tenderness (mild epigastric discomfort on palpation), normal bowel sounds. Absent: distended, guarding, rebound, rigid - Rectal Rectal exam: Present: deferred - Extremities Exam Extremities exam: Present: normal inspection - Back Exam Back exam: Present: normal inspection - Neurological Exam Neurological exam: Present: alert, oriented X3 - Psychiatric Psychiatric exam: Present: normal affect, normal mood - Skin Skin exam: Present: warm, dry, intact, normal color. Absent: rash ED Course Vital Signs 01/06/19 10:40 Temperature 98.4 F Pulse Rate 66 Respiratory 20 Rate Blood Pressure 145/88 O2 Sat by Pulse 99 Oximetry ED Medical Decision Making - Lab Data Result diagrams: 01/06/19 10:54 01/06/19 10:54 Lab Results 01/06/19 01/06/19 01/06/19 Range/Units 10:54 10:54 10:54 WBC 4.6 (4.5-11.0) K/mm3 RBC 4.46 (3.65-5.03) M/mm3 Hgb 14.4 (11.8-15.2) gm/dl Hct 41.3 (35.5-45.6) % MCV 93 (84-94) fl MCH 32 (28-32) pg MCHC 35 H (32-34) % RDW 15.5 H (13.2-15.2) % Plt Count 185 (140-440) K/mm3 Lymph % (Auto) 47.3 H (13.4-35.0) % Williams % (Auto) 12.3 H (0.0-7.3) % Eos % (Auto) 2.0 (0.0-4.3) % Baso % (Auto) 0.5 (0.0-1.8) % Lymph # 2.2 (1.2-5.4) K/mm3 Williams # 0.6 (0.0-0.8) K/mm3 Eos # 0.1 (0.0-0.4) K/mm3 Baso # 0.0 (0.0-0.1) K/mm3 Seg Neutrophils % 37.9 L (40.0-70.0) % Seg Neutrophils # 1.7 L (1.8-7.7) K/mm3 Sodium 134 L (137-145) mmol/L Potassium 4.0 (3.6-5.0) mmol/L Chloride 95.0 L (98-107) mmol/L Carbon Dioxide 27 (22-30) mmol/L Anion Gap 16 mmol/L BUN 22 H (9-20) mg/dL Creatinine 1.3 (0.8-1.5) mg/dL Estimated GFR > 60 ml/min BUN/Creatinine Ratio 17 % Glucose 105 H (75-100) mg/dL Calcium 9.3 (8.4-10.2) mg/dL Total Bilirubin 0.90 (0.1-1.2) mg/dL AST 31 (5-40) units/L ALT 21 (7-56) units/L Alkaline Phosphatase 199 H (35-129) units/L Total Protein 7.7 (6.3-8.2) g/dL Albumin 3.9 (3.9-5) g/dL Albumin/Globulin Ratio 1.0 % Lipase 30 (13-60) units/L Urine Color (Yellow) Urine Turbidity (Clear) Urine pH (5.0-7.0) Ur Specific Highland (1.003-1.030) Urine Protein (Negative) mg/dL Urine Glucose (UA) (Negative) mg/dL Urine Ketones (Negative) mg/dL Urine Blood (Negative) Urine Nitrite (Negative) Urine Bilirubin (Negative) Urine Urobilinogen (<2.0) mg/dL Ur Leukocyte Esterase (Negative) Urine WBC (Auto) (0.0-6.0) /HPF Urine RBC (Auto) (0.0-6.0) /HPF /09/14 Range/Units 12:05 WBC (4.5-11.0) K/mm3 RBC (3.65-5.03) M/mm3 Hgb (11.8-15.2) gm/dl Hct (35.5-45.6) % MCV (84-94) fl MCH (28-32) pg MCHC (32-34) % RDW (13.2-15.2) % Plt Count (140-440) K/mm3 Lymph % (Auto) (13.4-35.0) % Williams % (Auto) (0.0-7.3) % Eos % (Auto) (0.0-4.3) % Baso % (Auto) (0.0-1.8) % Lymph # (1.2-5.4) K/mm3 Williams # (0.0-0.8) K/mm3 Eos # (0.0-0.4) K/mm3 Baso # (0.0-0.1) K/mm3 Seg Neutrophils % (40.0-70.0) % Seg Neutrophils # (1.8-7.7) K/mm3 Sodium (137-145) mmol/L Potassium (3.6-5.0) mmol/L Chloride (98-107) mmol/L Carbon Dioxide (22-30) mmol/L Anion Gap mmol/L BUN (9-20) mg/dL Creatinine (0.8-1.5) mg/dL Estimated GFR ml/min BUN/Creatinine Ratio % Glucose (75-100) mg/dL Calcium (8.4-10.2) mg/dL Total Bilirubin (0.1-1.2) mg/dL AST (5-40) units/L ALT (7-56) units/L Alkaline Phosphatase (35-129) units/L Total Protein (6.3-8.2) g/dL Albumin (3.9-5) g/dL Albumin/Globulin Ratio % Lipase (13-60) units/L Urine Color Yellow (Yellow) Urine Turbidity Clear (Clear) Urine pH 7.0 (5.0-7.0) Ur Specific [place]land 1.020 (1.003-1.030) Urine Protein 30 mg/dl (Negative) mg/dL Urine Glucose (UA) Neg (Negative) mg/dL Urine Ketones Neg (Negative) mg/dL Urine Blood Neg (Negative) Urine Nitrite Neg (Negative) Urine Bilirubin Neg (Negative) Urine Urobilinogen 4.0 (<2.0) mg/dL Ur Leukocyte Esterase Neg (Negative) Urine WBC (Auto) < 1.0 (0.0-6.0) /HPF Urine RBC (Auto) 1.0 (0.0-6.0) /HPF - Radiology Data [facility] [address] [place] [address] Cat Scan Report Signed Patient: KAYLAN CAMARENA EDET MR#: [id number] : 1945 Acct:[id number] Age/Sex: 73 / M ADM Date: 01/06/19 Loc: ED Attending Dr: Ordering Physician: JOAQUINA AVELAR MD Date of Service: 01/06/19 Procedure(s): CT abdomen pelvis w con Accession Number(s): [id number] cc: JOAQUINA AVELAR MD PROCEDURE: CT ABDOMEN PELVIS W CON TECHNIQUE: CT of the abdomen and pelvis was performed. IV contrast was administered. Axial images and coronal and sagittal reformatted images were obtained. Axial delayed imaging also performed. HISTORY: abd pain COMPARISON: None FINDINGS: There is marked cardiomegaly. There is retrograde flow of contrast material into IVC and hepatic veins. This is consistent with right heart failure. There is a tiny cyst in the left hepatic lobe. Other tiny low-density liver lesions are very small and too small to characterize. The spleen, pancreas, adrenals and kidneys demonstrate no significant abnormality. There is no abdominal aortic aneurysm. There is no evidence for intestinal obstruction. The appendix is normal. There is no abnormal fluid collection seen. There is no free intraperitoneal air. There is diffuse bladder wall thickening. There are lumbar degenerative changes which are most notable at L4-5. There are also moderate degenerative findings involving the hips. IMPRESSION: Marked cardiomegaly with retrograde contrast flow into IVC/hepatic veins which suggests right heart failure. Tiny low-density liver lesions are too small to characterize. There significance is doubtful. Diffuse bladder wall thickening. Correlate for possible cystitis. There are degenerative findings in the lumbar spine and involving the hips This document is electronically signed by Dasha Avelar MD., January 06 2019 02:03:29 PM ET Transcribed By: ASHELY Dictated By: DASHA AVELAR MD Electronically Authenticated By: DASHA AVELAR MD Signed Date/Time: 01/06/19 1405 DD/ 1257 TD/TT: 01/06/19 1257 - Medical Decision Making Patient likely with some mild gastritis. Patient states his diet does consist of spicy foods. Patient be given meds for symptomatic relief be discharged home. Critical care attestation.: If time is entered above; I have spent that time in minutes in the direct care of this critically ill patient, excluding procedure time. ED Disposition Clinical Impression: Gastritis Qualifiers: Gastritis type: unspecified gastritis Chronicity: acute Gastritis bleeding: presence of bleeding unspecified Qualified Code(s): K29.00 - Acute gastritis without bleeding Disposition: -01 TO HOME OR SELFCARE Is pt being admited?: No Does the pt Need Aspirin: No Condition: Stable Instructions: Gastritis (ED) Referrals: OLIVER HERRERA MD, PHD [Primary Care Provider] - 3-5 Days Time of Disposition: 14:43
[2019-01-06 14:59] VITALS: BP 140/84
== END 2019-01-06 14:59 | disposition home or self-care (01) ==
LOC: ED 10:34
DX: K29.00 Acute gastritis without bleeding (principal); I11.0 Hypertensive heart disease with heart failure; I50.9 Heart failure, unspecified; M19.90 Unspecified osteoarthritis, unspecified site
CPT/HCPCS: 36415; 74177; 80053; 81001; 83690; 85025; 96374; 99284; Q9967